=== PATIENT | female | born 1985 | race Caucasian/White ===

== ENCOUNTER 2018-05-22 01:47 | Emergency (ER) | payer BC ==
[2018-05-22] MEDS ORDERED: Aspirin 81 mg CHEW TAB* 81 MG TAB.CHEW PO ONE (02:24)
--- NOTE | 2018-05-22 02:42 | ED ---
HPI Chest Pain - HPI Summary HPI Summary: A 33 y/o female presents to ED c/o chest pain reaching 3/10 in severity. In the ED room, the patient has a pulse of 102 BPM, O2 saturation of 99% and blood pressure of 162/119. As per triage, "Pt stated that she had some CP last week and they went away. Today it came back and it feels underneith her left breast. Pt states that moving or laying flat makes pain worse. Pt denies any cardiac HX. Pt does lift things for a living". According to the patient, she has left sided chest pain under her breast. Denies SOB. The pain is steady, however, is aggravated with deep breathes. She noted that it comes in bursts. The pain has been present since 1900 today, however, she did have similar pain last week for about 4 days, on the same side. No medical history. \\ - History of Current Complaint Chief Complaint: EDChestPainROMI Time Seen by Provider: 05/22/18 02:13 Hx Obtained From: Patient Onset/Duration: Started Hours Ago, Still Present Timing: Constant Initial Severity: Mild Current Severity: Mild Pain Intensity: 3 Pain Scale Used: 0-10 Numeric Chest Pain Location: Left Anterior Chest Pain Radiates: No Aggravating Factor(s): Deep Breaths Alleviating Factor(s): Nothing Associated Signs and Symptoms: Positive: Chest Pain. Negative: Shortness of Breath - Allergy/Home Medications Allergies/Adverse Reactions: Allergies Allergy/AdvReac Type Severity Reaction Status Date / Time No Known Allergies Allergy Verified 05/22/18 01:56 PMH/Surg Hx/FS Hx/Imm Hx Endocrine/Hematology History: Denies: Hx Diabetes Cardiovascular History: Denies: Hx Hypertension Respiratory History: Denies: Hx Asthma - Surgical History Surgery Procedure, Year, and Place: As per patient, no prior surgeries noted. Infectious Disease History: No Infectious Disease History: Denies: Traveled Outside the [place] in Last 30 Days - Family History Known Family History: Positive: Unknown - Patient is adopted. - Social History Alcohol Use: Rare Substance Use Type: Reports: None Smoking Status (MU): Former Smoker Review of Systems Negative: Fever Positive: Chest Pain Negative: Shortness Of Breath All Other Systems Reviewed And Are Negative: Yes Physical Exam - Summary Physical Exam Summary: VITAL SIGNS: Reviewed. GENERAL: Patient is a morbidly obese female who is lying comfortable in the stretcher. Patient is not in any acute respiratory distress. HEAD AND FACE: No signs of trauma. No ecchymosis, hematomas or skull depressions. No sinus tenderness. EYES: PERRLA, EOMI x 2, No injected conjunctiva, no nystagmus. EARS: Hearing grossly intact. Ear canals and tympanic membranes are within normal limits. MOUTH: Oropharynx within normal limits. NECK: Supple, trachea is midline, no adenopathy, no JVD, no carotid bruit, no c- spine tenderness, neck with full ROM. CHEST: Symmetric, no tenderness at palpation LUNGS: Clear to auscultation bilaterally. No wheezing or crackles. CVS: Regular rate and rhythm, S1 and S2 present, no murmurs or gallops appreciated. ABDOMEN: Soft, non-tender. No signs of distention. No rebound no guarding, and no masses palpated. Bowel sounds are normal. EXTREMITIES: FROM in all major joints, no edema, no cyanosis or clubbing. NEURO: Alert and oriented x 3. No acute neurological deficits. Speech is normal and follows commands. SKIN: Dry and warm Triage Information Reviewed: Yes Vital Signs On Initial Exam: Initial Vitals Temp Pulse Resp BP Pulse Ox 98.5 F 108 20 172/111 100 05/22/18 01:52 05/22/18 01:52 05/22/18 01:52 05/22/18 01:52 05/22/18 01:52 Vital Signs Reviewed: Yes Diagnostics - Vital Signs Vital Signs Temp Pulse Resp BP Pulse Ox 05/22/18 01:52 98.5 F 108 20 172/111 100 - Laboratory Result Diagrams: 05/22/18 02:30 05/22/18 02:30 Lab Statement: Any lab studies that have been ordered have been reviewed, and results considered in the medical decision making process. - Radiology CXR Radiology Interpretation Completed By: ED Physician - No acute process. Pending official report. - EKG 0243 Cardiac Rate: NL - 88 BPM EKG Rhythm: Sinus Rhythm EKG Interpretation: Normal axis, normal interval, no ischemic changes. Chest Pain Course/Dx - Course Course Of Treatment: A 33 y/o female presents to ED c/o chest pain reaching 3/ 10 in severity. In the ED room, the patient has a pulse of 102 BPM, O2 saturation of 99% and blood pressure of 162/119. A CXR revealed no acute process. An EKG revealed an NSR of 88 BPM, normal axis, normal interval, no ischemic changes. In the ED course, the patient recieved Aspirin. Patient will be discharged with a diagnosis of atypical chest pain and chest wall pain. Patient is to follow up with PCP in 1-2 days. Patient is agreeable with this plan. - Diagnoses Provider Diagnoses: Atypical chest pain, Chest wall pain Discharge - Sign-Out/Discharge Documenting (check all that apply): Patient Departure - DISCHARGE - Discharge Plan Condition: Stable Disposition: HOME Patient Education Materials: Chest Pain (ED) Referrals: Loly Segal MD [Primary Care Provider] - 2 Days Additional Instructions: FOLLOW UP WITH PRIMARY CARE IN 1-2 DAYS. RECOMMEND STRESS TEST OUTPATIENT MATTEO. RETURN TO ED FOR ANY NEW OR WORSENING SYMPTOMS. - Attestation Statements Document Initiated by Scribe: Yes Documenting Scribe: Ced Salcido Provider For Whom Scribe is Documenting (Include Credential): Ziyad Cooper Attestation: Ced Cabello, scribed for Shin Bernstein on 05/22/18 at 0324.
[2018-05-22 02:47] LABS: ABS Basophils 0.1 10^3/ul (0-0.2); ABS Eosinophils 0.1 10^3/ul (0-0.6); ABS Lymphocytes 2.6 10^3/ul (1.0-4.8); ABS Monocytes 0.4 10^3/ul (0-0.8); ABS Neutrophils 6.7 10^3/ul (1.5-7.7); ABS Nucleated RBC 0 10^3/ul; Hematocrit 34 % (35-47); Hemoglobin 10.9 g/dl (12.0-16.0); Mean Corpuscular HGB Conc 32 g/dl (31-36); Mean Corpuscular Hemoglobin 25 pg (27-31); Mean Corpuscular Volume 77 fL (80-97); Nucleated Red Blood Cells % 0; Platelet Count 292 10^3/ul (150-450); Red Blood Count 4.41 10^6/ul (4.00-5.40); Red Cell Distribution Width 15 % (10.5-15); White Blood Count 9.9 10^3/ul (3.5-10.8)
[2018-05-22 03:08] LABS: EGFR Non-African American 90.7 (>60)
[2018-05-22 03:45] VITALS: BP 147/97
--- NOTE | 2018-05-22 07:58 | RAD ---
Indication: Chest pain. Single frontal view of the chest performed at 0257 hours was reviewed. No prior study is available for comparison. No mediastinal shift is noted. Heart is of normal size and configuration. Lung hanna appear clear. IMPRESSION: NO ACTIVE CARDIOPULMONARY DISEASE IS NOTED. R0
== END 2018-05-22 03:45 | disposition home or self-care (01) ==
LOC: EDBD → ED 01:47
DX: R07.89 Other chest pain (principal); Z87.891 Personal history of nicotine dependence
CPT/HCPCS: 36415; 71045; 80053; 82550; 83605; 83735; 84484; 84702; 85025; 85379; 85610; 85730; 93005; 99283; A9270-GY